=== PATIENT | female | born 1985 | race Caucasian/White ===

== ENCOUNTER 2017-01-04 10:36 | Outpatient (CLI) | payer BC ==
[~2017-01-04] VITALS: Ht 167.6 cm; Wt 81.7 kg
[~2017-01-04 10:36] MED LIST: Motrin PO; Percocet 5/325,Endoc PO; THERAGRAN1 TABLET PO; [UNRECOGNIZED DRUG - OTHER] IM
[2017-01-04 10:56] VITALS: BP 131/70
[2017-01-04 12:35] LABS: ADD MIUA? YES; BILIRUBIN NEGATIVE; BLOOD NEGATIVE; COLOR STRAW ((YELLOW)); GLUCOSE (STRIP) NEGATIVE; KETONES NEGATIVE; LEUKOCYTES MODERATE; NITRITE NEGATIVE; PROTEIN (STRIP) NEGATIVE; SPECIFIC GRAVITY 1.005 (1.000-1.030); UROBILINOGEN 0.2 MG/DL (0.2-1.0)
[2017-01-04 12:37] LABS: BACTERIA RARE /HPF; EPITHELIAL CELLS 1+ /HPF; MUCUS NONE SEEN /LPF; RED BLOOD CELLS 0-5 /HPF (0-5); UCUL ADDED? NO; WHITE BLOOD CELLS 0-5 /HPF (0-5)
[2017-01-05 11:58] LABS: CHLAMYDIA TRACHOMATIS NEGATIVE; NEISSERIA GONORRHOEAE NEGATIVE
== END 2017-01-04 15:39 | disposition home or self-care (01) ==
LOC: LDRP-OP 10:36 → 2WEST 10:37
PROVIDERS: Nurse Practitioner
DX: O26.892 Other specified pregnancy related conditions, second trimester (principal); Z3A.24 24 weeks gestation of pregnancy
CPT/HCPCS: 59025; 76815; 81003; 87086; 87491; 87591; G0378

== ENCOUNTER 2017-04-26 15:19 | Inpatient (IN) | payer BC ==
[~2017-04-26] VITALS: Ht 167.6 cm; Wt 92.0 kg
[2017-04-26] VITALS (8 sets, daily range): BP systolic 102–136; BP diastolic 50–80
[2017-04-26 17:36] LABS: EOSINOPHIL (%) 0.7 % (0-5); EOSINOPHIL COUNT 0.1 K/uL (0-0.3); HEMATOCRIT 31.2 % (36.0-46.0); IMMATURE GRANULOCYTE (%) 0.7 % (0.0-0.7); IMMATURE GRANULOCYTE COUNT 0.1 K/uL; LYMPHOCYTE COUNT 1.7 K/uL (1.0-2.8); MCH 28.7 PG (29.0-34.0); MCHC 33.3 G/DL (30.0-36.0); MCV 86.2 FL (83-99); MEAN PLAT.VOLUME 10.2 uM^3 (9.5-12.4); MONOCYTE (%) 7.5 % (3-12); MONOCYTE COUNT 0.7 K/uL (0-0.8); NEUTROPHIL (%) 73.1 % (45-76); PLATELET COUNT 320 K/uL (156-360); RED BLOOD COUNT 3.62 M/uL (3.80-5.20); WHITE BLOOD COUNT 9.6 K/uL (4.1-10.2)
[2017-04-27] VITALS (15 sets, daily range): BP systolic 112–141; BP diastolic 60–77
[2017-04-27] MEDS ORDERED: IBUPROFEN800 MG PO (13:22)
[2017-04-28 08:01] VITALS: BP 139/75
[2017-04-28 14:51] VITALS: BP 122/75
[2017-04-28 23:12] VITALS: BP 110/57
[2017-04-29 07:30] VITALS: BP 127/67
== END 2017-04-29 12:10 | disposition home or self-care (01) | DRG 775 ==
LOC: LDRP-OP 15:19 → 2WEST 15:20 → LDRP-OP 05-25 15:48
PROVIDERS: Obstetrics & Gynecology
DX: O62.3 Precipitate labor (principal); Z3A.40 40 weeks gestation of pregnancy; O70.0 First degree perineal laceration during delivery; Z37.0 Single live birth
CPT/HCPCS: 85025; C1755; G0378; J0595; J7120